=== PATIENT | male | born 1960 ===

== ENCOUNTER 2016-07-21 01:49 | Emergency (ER) | payer OTHER ==
[~2016-07-21] VITALS: Ht 177.8 cm; Wt 104.3 kg
[~2016-07-21 01:49] MED LIST: AUGMENTIN 875-1 EACH PO; PREDNISONE50 M1 PO; TESSALON PERLE100 M1 PO; VENTOLIN HFA18 GM INH
[2016-07-21 02:22] VITALS: BP 156/83
[2016-07-21] MEDS ORDERED: PREDNISONE20 M1 PO (03:57)
[2016-07-21] MEDS ORDERED: TESSALON PERLE100 M1 PO (03:57)
[2016-07-21] MEDS ORDERED: AMOXICILLIN875 M1 PO (03:57)
[2016-07-21] MEDS ORDERED: AFRIN30 ML NASB (03:57)
--- NOTE | 2016-07-21 03:58 | ED INFLUENZA/URI COMPLAINT ---
History of Present Illness General Chief Complaint: General Adult Stated Complaint: "CANT SLEEP Source: patient, old records Exam Limitations: no limitations Vital Signs & Intake/Output Vital Signs & Intake/Output Vital Signs Date Time Temp Pulse Resp B/P Pulse O2 O2 Flow FiO2 Ox Delivery Rate 07/215 97 Room Air Room Air 07/21 221 98.3 76 20 156/83 97 Room Air Allergies Coded Allergies: No Known Allergies (07/21/16) Reconcile Medications Amoxicillin 875 MG TABLET 1 TAB PO BID sinusitis Benzonatate (Tessalon Perle) 100 MG CAPSULE 1 CAP PO TID PRN cough Oxymetazoline HCl (Afrin) 0.05 % SPRAY 2 SPRAY NASB BID sinusitis Prednisone 20 MG TABLET 1 TAB PO BID sinusitis Triage Note: 56YO MALE TO [place] A W/CO "UNABLE TO SLEEP X 3 NIGHTS DUE TO INCREASED COUGH." Triage Nurses Notes Reviewed? yes Onset: 3 days Duration: day(s):, waxing and waning Timing: recent history Severity: mild Prior Episodes/Possible Cause: illness exposure No Modifying Factors: none Associated Symptoms: cough, muscle aches, nasal congestion, nasal drainage, sore throat HPI: 3 days prior to admission patient complains of nasal congestion nonproductive cough difficulty sleeping sore throat. Denies fever chills nausea vomiting diarrhea abdominal pain chest pain shortness breath headache dysuria rash bleeding Past History Travel History Traveled to [place] past 21 day No Medical History Any Pertinent Medical History? none Surgical History Surgical History: none Psychosocial History What is your primary language Algerian Tobacco Use: Never used ETOH Use: denies use Family History Hx Contributory? No Review of Systems Review of Systems Constitutional: Reports: see HPI, malaise. EENTM: Reports: see HPI, nasal congestion. Respiratory: Reports: see HPI, cough. Cardiovascular: Reports: no symptoms. GI: Reports: no symptoms. Genitourinary: Reports: no symptoms. Musculoskeletal: Reports: no symptoms. Skin: Reports: no symptoms. Neurological/Psychological: Reports: no symptoms. Hematologic/Endocrine: Reports: no symptoms. Immunologic/Allergic: Reports: no symptoms. All Other Systems: Reviewed and Negative Physical Exam Physical Exam General Appearance: well developed/nourished, alert, awake, anxious, mild distress Head: atraumatic, normal appearance Eyes: Bilateral: normal appearance, PERRL, EOMI. Ears, Nose, Throat: moist mucous membrane, nasal congestion, nasal drainage, pharyngeal erythema Neck: normal inspection, supple, full range of motion, trachea midline Respiratory: normal breath sounds, chest non-tender, no respiratory distress, quiet respiration, lungs clear Cardiovascular: regular rate/rhythm, normal peripheral pulses, norml femoral pulses equa Peripheral Pulses: 4+ carotid (R), 4+ carotid (L) Gastrointestinal: normal bowel sounds, soft, non-tender, no organomegaly Back: normal inspection, normal range of motion, no vertebral tenderness Extremities: normal inspection, normal capillary refill, normal range of motion, no edema Neurologic/Psych: no motor/sensory deficits, awake, alert, oriented x 3, normal gait, normal mood/affect, camera maker II-XII nml as tested Reflexes: 2+: bicep (R), bicep (L). Skin: intact, normal color, warm/dry Lymphatic: no anterior cervical maritza Core Measures Severe Sepsis Present: No Septic Shock Present: No Progress Differential Diagnosis: influenza, pharyngitis, sinusitis Plan of Care: Orders Procedure Date/time Status THROAT CULTURE W/QUICK STREP 07/21 0302 Active Initial ED EKG: none Departure Departure Time of Disposition: 354 Disposition: HOME OR SELF CARE Condition: Stable Clinical Impression Primary Impression: Sinusitis, acute Qualifiers: Sinusitis location: unspecified location Recurrence: not specified as recurrent Qualified Code: J01.90 - Acute sinusitis, unspecified Referrals: PATIENT HAS NO PRIMARY CARE DR (PCP/Family) Departure Forms: Customer Survey General Discharge Information Prescriptions: Current Visit Scripts Amoxicillin 1 TAB PO BID #20 TAB Oxymetazoline HCl (Afrin) 2 SPRAY NASB BID #30 ML Prednisone 1 TAB PO BID #10 TAB Benzonatate (Tessalon Perle) 1 CAP PO TID PRN cough #21 CAP
== END 2016-07-21 04:34 ==
LOC: ERH 01:49
DX: J01.90 Acute sinusitis, unspecified (principal)